=== PATIENT | male | born 1955 | race Caucasian/White ===

== ENCOUNTER 2023-02-27 09:09 | Outpatient (CLI) | payer OTHER ==
[2023-02-27 10:32] LABS: BASOPHILS % (AUTO) 0.2 % (0-1); EOSINOPHILS % (AUTO) 0.4 % (0-6); HEMATOCRIT 53.9 % (42.0-52.0); LYMPHOCYTES # (AUTO) 0.9 X10'3 (1.1-4.8); LYMPHOCYTES % (AUTO) 9.6 % (21-51); MEAN CORPUSCULAR HEMOGLOBIN 31.7 PG (27.0-31.0); MEAN CORPUSCULAR HGB CONC 33.7 g/dL (33.0-36.5); MEAN PLATELET VOLUME 8.3 FL (7.4-10.4); MONOCYTES # (AUTO) 0.8 X10'3 (0-0.9); MONOCYTES % (AUTO) 9.1 % (2-12); NEUTROPHILS # (AUTO) 7.4 X10'3 (1.8-7.7); NEUTROPHILS % (AUTO) 80.7 % (42-75); PLATELET COUNT 177 X10'3 (140-440); RED BLOOD COUNT 5.73 X10'6 (4.70-6.10); RED CELL DISTRIBUTION WIDTH 15.3 % (11.5-14.5); WHITE BLOOD COUNT 9.2 X10'3 (4.5-11.0)
[2023-02-27 10:35] LABS: HEMOGLOBIN 18.1 g/dl (14.0-17.9)
[2023-02-27 10:43] LABS: APTT 28 SECONDS (22-32)
[2023-02-27 10:45] LABS: ALANINE AMINOTRANSFERASE 728 U/L (12-78); ALBUMIN 4.2 G/DL (3.4-5.0); ALKALINE PHOSPHATASE 119 IU/L (46-116); ANION GAP 6 (8-16); ASPARTATE AMINO TRANSFERASE 330 U/L (10-37); BILIRUBIN,TOTAL 12.5 MG/DL (0.1-1.0); BLOOD UREA NITROGEN 13 MG/DL (7-18); BUN/CREATININE RATIO 10.3 (10.0-20.0); CALCIUM 9.1 MG/DL (8.5-10.1); CHLORIDE 103 MMOL/L (99-107); CREATININE 1.26 MG/DL (0.60-1.10); GLUCOSE 116 MG/DL (70-104); LIPASE 159 U/L (73-393); SODIUM 139 MMOL/L (135-145); TOTAL CARBON DIOXIDE 30.5 MMOL/L (24-32); eGFR 57 ML/MIN
[2023-02-27 10:50] LABS: ALBUMIN/GLOBULIN RATIO 1.3 (1.1-1.5); POTASSIUM 3.9 MMOL/L (3.5-5.1); TOTAL PROTEIN 7.4 G/DL (6.4-8.2)
[2023-02-27] MEDS ORDERED: NO HOME MEDS (14:18)
== END 2023-02-27 23:59 | disposition home or self-care (01) ==
LOC: LAB 09:09
PROVIDERS: ATTEND Surgery
DX: Z01.812 Encounter for preprocedural laboratory examination (principal); Z71.2 Person consulting for explanation of examination or test findings
CPT/HCPCS: 36415; 80053; 83690; 85025; 85610; 85730

== ENCOUNTER 2023-03-13 11:48 | Day surgery (SDC) | payer OTHER ==
[~2023-03-13] VITALS: Ht 185.4 cm; Wt 102.7 kg
[~2023-03-13 11:48] MED LIST: NO HOME MEDS
[2023-03-13 12:15] VITALS: BP 116/84
[2023-03-13] MEDS ORDERED: DOCU-391 PO (12:28)
[2023-03-13] MEDS ORDERED: ONDA4TAB12 PO (12:28)
[2023-03-13] MEDS ORDERED: HYDR-3972 PO (12:28)
[2023-03-13] MEDS ORDERED: METO25TA6 PO (12:28)
[2023-03-13] MEDS ORDERED: AMOX-580 PO (12:28)
[2023-03-13] MEDS ORDERED: OXYC5TAB2 PO (12:28)
[2023-03-13] MEDS ORDERED: iohexol 300mg/ml 100ml inj. ONE (13:10)
[2023-03-13 13:52] VITALS: BP 120/90
== END 2023-03-13 14:20 | disposition home or self-care (01) ==
LOC: SSTAY O 11:48
PROVIDERS: ATTEND Radiology Vascular & Interventional Radiology
DX: T85.590A Other mechanical complication of bile duct prosthesis, initial encounter (principal); N28.1 Cyst of kidney, acquired; Y83.8 Other surgical procedures as the cause of abnormal reaction of the patient, or of later complication, without mention of misadventure at the time of the procedure; Y92.89 Other specified places as the place of occurrence of the external cause
CPT/HCPCS: 47531; 74150; Q9967; A6449; J7030

== ENCOUNTER 2023-03-28 09:50 | Day surgery (SDC) | payer OTHER ==
[~2023-03-28] VITALS: Ht 185.4 cm; Wt 102.6 kg
[~2023-03-28 09:50] MED LIST changes: +AMOX-580 PO; +DOCU-391 PO; +HYDR-3972 PO; +METO25TA6 PO; +ONDA4TAB12 PO; +OXYC5TAB2 PO
[2023-03-28 10:18] VITALS: BP 124/84
[2023-03-28] MEDS ORDERED: iohexol 300 MG/1 ML 50ml polymer ONE (11:22)
[2023-03-28 11:53] VITALS: BP 132/79
== END 2023-03-28 12:20 | disposition home or self-care (01) ==
LOC: SSTAY O 09:50
PROVIDERS: ATTEND Radiology Vascular & Interventional Radiology
DX: T85.590A Other mechanical complication of bile duct prosthesis, initial encounter (principal); Y83.8 Other surgical procedures as the cause of abnormal reaction of the patient, or of later complication, without mention of misadventure at the time of the procedure; Y92.89 Other specified places as the place of occurrence of the external cause
CPT/HCPCS: 47531; 74150; Q9967; A6449

== ENCOUNTER 2023-04-17 09:15 | Outpatient (CLI) | payer OTHER ==
[~2023-04-17 09:15] MED LIST changes: -AMOX-580 PO; -DOCU-391 PO; -HYDR-3972 PO; -NO HOME MEDS; -ONDA4TAB12 PO; -OXYC5TAB2 PO
== END 2023-04-17 23:59 | disposition home or self-care (01) ==
LOC: RAD 09:15
PROVIDERS: ATTEND Surgery
DX: K38.8 Other specified diseases of appendix (principal)
CPT/HCPCS: 78226; A9537